=== PATIENT | female | born 1985 | race Hispanic/Latino ===

== ENCOUNTER 2019-02-01 17:27 | Inpatient (IN) | payer OTHER ==
[2019-02-01] MEDS ORDERED: Sodium Chloride 0.9% 1,000 ML IV STA ×2 (18:07→22:48)
[2019-02-01 18:38] LABS: BASO # 0.03 K/mm3 (0.0-2.0); BASO % 0.2 % (0.0-3.0); EOS # 0.2 (0.0-0.7); EOS % 1.2 % (1.5-5.0); HEMOGLOBIN 13.2 g/dL (12.0-16.0); LYMPH # 2.4 (1.2-3.4); LYMPH % 19.1 % (22.0-35.0); MEAN CELL VOLUME 87.8 fl (80.0-105.0); MEAN CORPUSCULAR HEMOGLOBIN 30.3 pg (25.0-35.0); MEAN CORPUSCULAR HGB CONC 34.6 g/dl (31.0-37.0); MONO # 0.9 (0.1-0.6); MONO % 7.3 % (1.0-6.0); RBC 4.35 10^6/uL (3.5-6.1); RED CELL DISTRIBUTION WIDTH 13.6 % (11.5-14.5); WHITE BLOOD COUNT 12.4 10^3/uL (4.5-11.0)
[2019-02-01 18:45] LABS: ALB/GLOB RATIO 1.4 (1.1-1.8); ALBUMIN 5.2 g/dL (3.0-4.8); ALT/SGPT 149 U/L (7-56); AST/SGOT 243 U/L (14-36); BLOOD UREA NITROGEN 6 mg/dL (7-21); CALCIUM 9.8 mg/dL (8.4-10.5); GFR NON-AFRICAN AMERICAN > 60; LIPASE 30 U/L (23-300)
[2019-02-01 18:52] LABS: PH,URINE 6.5 (4.7-8.0); URINE BILIRUBIN SMALL (NEGATIVE); URINE BLOOD NEGATIVE (NEGATIVE); URINE GLUCOSE (UA) NEGATIVE (NEGATIVE); URINE LEUKOCYTE ESTERASE NEGATIVE Leu/uL (NEGATIVE); URINE PROTEIN 30 mg/dL (<30 mg/dL); URINE UROBILINOGEN 0.2 E.U./dL (<1 E.U./dL)
[2019-02-01 18:53] LABS: URINE APPEARANCE SLIGHT-CLOUDY (CLEAR)
[2019-02-01 19:04] LABS: URINE BACTERIA FEW /hpf; URINE EPITHELIAL CELLS 0 - 2 /hpf (0-5)
[2019-02-01 19:05] LABS: URINE COLOR DARK YELLOW (YELLOW)
--- NOTE | 2019-02-01 19:11 | ED PDOC ---
Arrival/HPI - General Historian: Patient - History of Present Illness Narrative History of Present Illness (Text): 02/01/19 19:01 33 year old female with a PMH of ulcerative colitis (remission since teenager) presents to the emergency department complaining of cramping abdominal pain with episodes of Nausea, Vomiting, and diarrhea x6days. Patient reports that she have had epigastric heartburn and difficulty eating or drinking due to constant vomiting. Patient denies any fevers, chills, headache, dizziness, chest pain, shortness of breath, dyspnea on exertion, cough, back pain, neck pain, or any other complaint. Time/Duration: < week Symptom Onset: Gradual Symptom Course: Unchanged Activities at Onset: Light Context: Home <Karla Pollock - Last Filed: 02/01/19 22:59> <Santos Marsh - Last Filed: 02/01/19 23:29> - General Chief Complaint: Abdominal Pain Time Seen by Provider: 02/01/19 17:59 Past Medical History - Provider Review Nursing Documentation Reviewed: Yes - Endocrine/Metabolic Hx Hypothyroidism: Yes - Hematological/Oncological Hx Anemia: Yes - Gastrointestinal Other/Comment: Liver problem due to previous alcohol use. Gall stone - Psychiatric Hx Substance Use: No <Karla Pollock - Last Filed: 02/01/19 22:59> Family/Social History - Physician Review Nursing Documentation Reviewed: Yes Family/Social History: No Known Family HX Smoking Status: Former Smoker Hx Alcohol Use: No (Quit 1 year ago) Hx Substance Use: No <Karla Pollock - Last Filed: 02/01/19 22:59> Allergies/Home Meds <Karla Pollock - Last Filed: 02/01/19 22:59> <Santos Marsh - Last Filed: 02/01/19 23:29> Allergies/Adverse Reactions: Allergies No Known Allergies Allergy (Verified 02/01/19 17:49) Home Medications: Home Meds Medication Instructions Recorded Confirmed Ferrous Sulfate [Ferosul] 325 mg PO QID 02/01/19 02/01/19 LORazepam [Ativan] 0.5 mg PO DAILY PRN 02/01/19 02/01/19 Levothyroxine [Synthroid] 100 mcg PO DAILY 02/01/19 02/01/19 Review of Systems - Physician Review All systems were reviewed & negative as marked: Yes - Review of Systems Constitutional: Fatigue. absent: Fevers Respiratory: absent: SOB, Cough Cardiovascular: absent: Chest Pain Gastrointestinal: Abdominal Pain (Epigastric, cramping), Diarrhea, Nausea, Vomiting. absent: Constipation, Hematochezia, Hematemesis Genitourinary Female: absent: Dysuria, Frequency, Hematuria Musculoskeletal: absent: Arthralgias, Back Pain, Neck Pain Skin: absent: Rash, Pruritis Neurological: absent: Headache, Dizziness Psychiatric: absent: Anxiety, Depression <Karla Pollock - Last Filed: 02/01/19 22:59> Physical Exam Vital Signs Reviewed: Yes Vital Signs Temp Pulse Resp BP Pulse Ox 02/01/19 17:44 97.5 F L 89 18 126/87 98 Temperature: Afebrile Blood Pressure: Normal Pulse: Regular Respiratory Rate: Normal Appearance: Positive for: Well-Appearing, Non-Toxic, Comfortable Pain Distress: None Mental Status: Positive for: Alert and Oriented X 3 - Systems Exam Head: Present: Atraumatic Mouth: Present: Moist Mucous Membranes Neck: Present: Normal Range of Motion Respiratory/Chest: Present: Clear to Auscultation, Good Air Exchange. No: Respiratory Distress, Accessory Muscle Use Cardiovascular: Present: Regular Rate and Rhythm, Normal S1, S2. No: Murmurs Abdomen: Present: Tenderness (minimal lower abdominal tenderness), Normal Bowel Sounds. No: Distention, Peritoneal Signs, Rebound, Guarding Back: Present: Normal Inspection. No: CVA Tenderness Upper Extremity: Present: Normal Inspection, Normal ROM Lower Extremity: Present: Normal Inspection, Normal ROM Neurological: Present: GCS=15, Speech Normal Skin: Present: Warm, Dry, Normal Color. No: Rashes Psychiatric: Present: Alert, Oriented x 3 <Karla Pollock - Last Filed: 02/01/19 22:59> Vital Signs Temp Pulse Resp BP Pulse Ox 02/01/19 17:44 97.5 F L 89 18 126/87 98 <Santos Marsh - Last Filed: 02/01/19 23:29> Medical Decision Making ED Course and Treatment: 02/01/19 19:16 Impression: 33 year old female presents to the emergency department complaining of cramping abdominal pain with episodes of Nausea, Vomiting, and diarrhea x6days. Plan: --CT Abd/Pelvis --Zofran Injection --Pepcid --Saline IV --UA --Labs -- Reassess and disposition Prior Visits: Notes and results from previous visits were reviewed. Progress Notes: Patient is nontoxic well appearing with stable vital signs presenting with [severe] abdominal pain CBC wbc: 12.3 CMP: elevated lfts Lipase wnl Urinalysis no leukocytes CAT scan: FINDINGS: LUNG BASES: The lung bases appear clear. No pleural effusions are seen. LIVER: Unremarkable. GALLBLADDER AND BILE DUCTS: There are two large calcified gallstones noted measuring up to 2 cm. No biliary ductal dilatation is evident. PANCREAS: Unremarkable. SPLEEN: Unremarkable. ADRENAL GLANDS: Unremarkable. KIDNEYS, URETERS, AND BLADDER: The kidneys appear within normal limits. There is no hydronephrosis or hydroureter. No urinary calculi are seen. STOMACH AND BOWEL: Thick walled fluid filled duodenum and loops of jejunum as well as ileum compatible with enteritis. Thick walled fluid filled colon is noted with involvement of all segments compatible with diffuse pancolitis. Infectious and inflammatory etiologies are considered. APPENDIX: No evidence of acute appendicitis on CT examination. PERITONEUM: No free fluid. No free air. LYMPH NODES: No lymphadenopathy is evident. REPRODUCTIVE: Simple 2.5 cm left ovarian cyst is seen. The uterus and ovaries are otherwise unremarkable. VASCULATURE: No evidence of abdominal aortic aneurysm. BONES: No aggressive appearing osseous lesion. No acute osseous pathology evident. IMPRESSION: 1. There are two large calcified gallstones noted measuring up to 2 cm. Consider follow-up with right upper quadrant ultrasound. 2. Enterocolitis. Infectious and inflammatory etiologies are considered. Consider consultation with GI service. 3. Simple 2.5 cm left ovarian cyst is seen. The uterus and ovaries are otherwise unremarkable. Electronically signed on Feb 01, 2019 9:36:25 PM EST by: Terrell Baker M.D., JEWELL Certified By [facility] Fellowship Trained MRI and CT Specialist Patient reassessment: pt states symptoms improved and then returned. blood cultures pending pt started on rocephin and flagyl . 2nd dose of zofran given. Discussed all results with patient in depth case discussed with dr. rose; accepts admission. Impression: pancolitis, gallstones, elevated lfts, abdominal pain admit - Lab Interpretations Lab Results: Total Bilirubin 3.7 mg/dL (0.2-1.3) H 02/01/19 18:14 AST 243 U/L (14-36) H 02/01/19 18:14 ALT 149 U/L (7-56) H 02/01/19 18:14 Alkaline Phosphatase 235 U/L (38-126) H 02/01/19 18:14 Total Protein 8.9 g/dL (5.8-8.3) H 02/01/19 18:14 Albumin 5.2 g/dL (3.0-4.8) H 02/01/19 18:14 Globulin 3.7 gm/dL 02/01/19 18:14 Albumin/Globulin Ratio 1.4 (1.1-1.8) 02/01/19 18:14 Lipase 30 U/L (23-300) 02/01/19 18:14 Urine Color Dk (YELLOW) 02/01/19 18:14 Urine Appearance Slight-cloudy (CLEAR) 02/01/19 18:14 Urine pH 6.5 (4.7-8.0) 02/01/19 18:14 Ur Specific [place] 1.025 (1.005-1.035) 02/01/19 18:14 Urine Protein 30 mg/dL (<30 mg/dL) H 02/01/19 18:14 Urine Glucose (UA) Negative mg/dL (NEGATIVE) 02/01/19 18:14 Urine Ketones Negative mg/dL (NEGATIVE) 02/01/19 18:14 Urine Blood Negative (NEGATIVE) 02/01/19 18:14 Urine Nitrate Positive (NEGATIVE) H 02/01/19 18:14 Urine Bilirubin Small (NEGATIVE) H 02/01/19 18:14 Urine Urobilinogen 0.2 E.U./dL (<1 E.U./dL) 02/01/19 18:14 Ur Leukocyte Esterase Negative Hussein/uL (NEGATIVE) 02/01/19 18:14 - Medication Orders Current Medication Orders: Sodium Chloride (Sodium Chloride 0.9%) 1,000 mls @ 999 mls/hr IV .Q1H1M STA Stop: 02/01/19 19:07 Last Admin: 02/01/19 18:13 Dose: 999 mls/hr eMAR Start Stop Document 02/01/19 18:13 BB (Rec: 02/01/19 18:13 BB [id number]) Intravenous Solution Start Date 02/01/19 Start Time 18:13 <Karla Pollock T - Last Filed: 02/01/19 22:59> - Lab Interpretations Lab Results: Total Bilirubin 3.7 mg/dL (0.2-1.3) H 02/01/19 18:14 AST 243 U/L (14-36) H 02/01/19 18:14 ALT 149 U/L (7-56) H 02/01/19 18:14 Alkaline Phosphatase 235 U/L (38-126) H 02/01/19 18:14 Total Protein 8.9 g/dL (5.8-8.3) H 02/01/19 18:14 Albumin 5.2 g/dL (3.0-4.8) H 02/01/19 18:14 Globulin 3.7 gm/dL 02/01/19 18:14 Albumin/Globulin Ratio 1.4 (1.1-1.8) 02/01/19 18:14 Lipase 30 U/L (23-300) 02/01/19 18:14 Urine Color Dark yellow (YELLOW) 02/01/19 18:14 Urine Appearance Slight-cloudy (CLEAR) 02/01/19 18:14 Urine pH 6.5 (4.7-8.0) 02/01/19 18:14 Ur Specific [place] 1.025 (1.005-1.035) 02/01/19 18:14 Urine Protein 30 mg/dL (<30 mg/dL) H 02/01/19 18:14 Urine Glucose (UA) Negative mg/dL (NEGATIVE) 02/01/19 18:14 Urine Ketones Negative mg/dL (NEGATIVE) 02/01/19 18:14 Urine Blood Negative (NEGATIVE) 02/01/19 18:14 Urine Nitrate Positive (NEGATIVE) H 02/01/19 18:14 Urine Bilirubin Small (NEGATIVE) H 02/01/19 18:14 Urine Urobilinogen 0.2 E.U./dL (<1 E.U./dL) 02/01/19 18:14 Ur Leukocyte Esterase Negative Hussein/uL (NEGATIVE) 02/01/19 18:14 Urine RBC None /hpf (0-2) 02/01/19 18:14 Urine WBC None /hpf (0-6) 02/01/19 18:14 Ur Epithelial Cells 0 - 2 /hpf (0-5) 02/01/19 18:14 Urine Bacteria Few /hpf (NONE) 02/01/19 18:14 - RAD Interpretation Radiology Orders: 02/01/19 19:06 ABD & PELVIS IV CONTRAST ONLY [CT] Stat - Medication Orders Current Medication Orders: Discontinued Medications Famotidine (Pepcid) 20 mg IVP STAT STA Stop: 02/01/19 19:07 Last Admin: 02/01/19 19:21 Dose: 20 mg IVP Administration Document 02/01/19 19:21 IT (Rec: 02/01/19 19:21 IT [id number]) Charges for Administration # of IVP Administrations 1 Sodium Chloride (Sodium Chloride 0.9%) 1,000 mls @ 999 mls/hr IV .Q1H1M STA Stop: 02/01/19 19:07 Last Admin: 02/01/19 18:13 Dose: 999 mls/hr eMAR Start Stop Document 02/01/19 18:13 BB (Rec: 02/01/19 18:13 BB [id number]) Intravenous Solution Start Date 02/01/19 Start Time 18:13 Ondansetron HCl (Zofran Inj) 4 mg IVP STAT STA Stop: 02/01/19 19:07 Last Admin: 02/01/19 19:21 Dose: 4 mg IVP Administration Document 02/01/19 19:21 IT (Rec: 02/01/19 19:21 IT [id number]) Charges for Administration # of IVP Administrations 1 <Santos Marsh - Last Filed: 02/01/19 23:29> - PA / SENIOR CONSUMER INSIGHTS CONSULTANT / Resident Statement MD/ has reviewed & agrees with the documentation as recorded. - Scribe Statement The provider has reviewed the documentation as recorded by the Vin brar with Citl[place] All medical record entries made by the Lisaibkatie were at my direction and personally dictated by me. I have reviewed the chart and agree that the record accurately reflects my personal performance of the history, physical exam, medical decision making, and the department course for this patient. I have also personally directed, reviewed, and agree with the discharge instructions and disposition. <Karla Pollock - Last Filed: 02/01/19 22:59> - PA / SENIOR CONSUMER INSIGHTS CONSULTANT / Resident Statement / has reviewed & agrees with the documentation as recorded. / has examined the patient and agrees with the treatment plan. <Santos Marsh - Last Filed: 02/01/19 23:29> Disposition/Present on Arrival - Present on Arrival Any Indicators Present on Arrival: No History of DVT/PE: No History of Uncontrolled Diabetes: No Urinary Catheter: No History of Decub. Ulcer: No History Surgical Site Infection Following: None - Disposition Have Diagnosis and Disposition been Completed?: Yes Disposition Time: 22:51 Patient Plan: Admission <Karla Pollock - Last Filed: 02/01/19 22:59> <Santos Marsh - Last Filed: 02/01/19 23:29> - Disposition Diagnosis: Pancolitis, Elevated LFTs, Gallstones Disposition: HOSPITALIZED Patient Problems: Current Active Problems Problem Status Onset Elevated LFTs Acute Gallstones Acute Pancolitis Acute Condition: FAIR Discharge Instructions (ExitCare): Ulcerative Colitis (ED) Referrals: Diony Horan MD [Primary Care Provider] - Follow up with primary Forms: [facility] ([place])
[2019-02-01] MEDS ORDERED: Iohexol 350 MG/100 ML VIAL ONE (20:20)
[2019-02-01] MEDS ORDERED: cefTRIAXone 1 gm 1 GM/100 ML BAG IVPB STA (22:48)
[2019-02-01] MEDS ORDERED: metroNIDAZOLE IV 500 mg/100 ml 500 MG/100 ML BAG IVPB STA (22:48)
--- NOTE | 2019-02-01 23:38 | CP.PCM.HP ---
<Jonny Francisco - Last Filed: 02/02/19 01:57> History of Present Illness - History of Present Illness History of Present Illness: Jonny Francisco, PGY1 Medicine H&P for Dr. Kelly cc: "cramping lower abdominal pain with nausea, vomiting, diarrhea x1 week duration" Patient is a 33 year old female with a PMHx of ulcerative colitis (remission since teenager), Gallstones, Hypothyroidism, Anxiety, Iron Deficiency Anemia who presents to the emergency department complaining of cramping lower abdominal pain with episodes of nausea, vomiting, and diarrhea x1 week in duration. She also has associated difficulty with eating and drinking in the past few days because of her nausea and vomiting. Medical team evaluated patient in the ED. She said her vomiting is non-bloody and non-bilious. Diarrhea has been worsening in the last week. She claims that yesterday she was having diarrhea almost every 15 minutes. She was recently given xifaxan. She says she had UC diagnosed at age 6 and that was the last time she had a colonoscopy. She used to take prednisone for her UC however she has been in remission since a teenager. She is also aware that she has gallstones but says she was told that surgery was not necessary. Patient follows up with her GI physician for her UC, last appointment was in August 2018. She has never had an upper endoscopy done before. Since arrival to the ED, her pain has improved a little and she has less nausea and vomiting since arrival. Denies cough, headache, fever, chills, cp, sob, lightheadedness, dizziness, weight loss, night sweats, urinary frequency/urgency/dysuria. She has not tried any unusual foods recently, no sick contacts, no recent travel. A full 12 point ROS was conducted and unremarkable except as stated above. PMD: Dr. 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 Lives in [place]. Former smoker (1 PPD x 20 years), quit 1 year ago. Denies EtOH use (last drink 1 year ago). Denies illicit drug use. FamHx: father has DM and brother has DM. Present on Admission - Present on Admission Any Indicators Present on Admission: No Review of Systems - Review of Systems All systems: reviewed and no additional remarkable complaints except (as per HPI.) Past Patient History - Past Social History Smoking Status: Former Smoker - ENDOCRINE/METABOLIC Hx Hypothyroidism: Yes - HEMATOLOGICAL/ONCOLOGICAL Hx Anemia: Yes - GASTROINTESTINAL Other/Comment: Liver problem due to previous alcohol use. Gall stone - PSYCHIATRIC Hx Substance Use: No - SURGICAL HISTORY Hx Surgeries: No Meds Allergies/Adverse Reactions: Allergies Allergy/AdvReac Type Severity Reaction Status Date / Time No Known Allergies Allergy Verified 02/01/19 17:49 Physical Exam - Constitutional Appears: No Acute Distress - Head Exam Head Exam: ATRAUMATIC, NORMAL INSPECTION, NORMOCEPHALIC - Eye Exam Eye Exam: EOMI, Normal appearance Pupil Exam: NORMAL ACCOMODATION, PERRL - ENT Exam ENT Exam: Mucous Membranes Moist - Respiratory Exam Respiratory Exam: Clear to Auscultation Bilateral, NORMAL BREATHING PATTERN. absent: Accessory Muscle Use, Chest Wall Tenderness, Prolonged Expiratory Phase, Rales, Rhonchi, Wheezes - Cardiovascular Exam Cardiovascular Exam: RRR, +S1, +S2 - GI/Abdominal Exam GI & Abdominal Exam: Normal Bowel Sounds, Soft, Tenderness (Lower abdominal tenderness to deep palpation. ). absent: Firm, Guarding, Hernia, Organomegaly, Pulsatile Mass, Rebound Additional comments: No suprapubic tenderness. - Extremities Exam Extremities exam: Positive for: full ROM, normal inspection, pedal pulses present. Negative for: calf tenderness - Back Exam Back exam: NORMAL INSPECTION. absent: CVA tenderness (L), CVA tenderness (R) - Neurological Exam Neurological exam: Alert, CN II-XII Intact, Oriented x3 - Psychiatric Exam Psychiatric exam: Normal Affect, Normal Mood - Skin Skin Exam: Dry, Intact, Normal Color, Warm Results - Vital Signs Recent Vital Signs: Last Vital Signs Temp 97.5 F L 02/01/19 17:44 Pulse 89 02/01/19 17:44 Resp 18 02/01/19 17:44 BP 126/87 02/01/19 17:44 Pulse Ox 98 02/01/19 17:44 - Labs Result Diagrams: 02/01/19 18:14 02/01/19 18:14 Labs: Laboratory Results - last 24 hr 02/01/19 02/01/19 02/01/19 18:14 18:14 18:14 WBC 12.4 H RBC 4.35 Hgb 13.2 Hct 38.2 MCV 87.8 MCH 30.3 MCHC 34.6 RDW 13.6 Plt Count 240 MPV 12.0 H Neut % (Auto) 72.2 H Lymph % (Auto) 19.1 L [place] % (Auto) 7.3 H Eos % (Auto) 1.2 L Baso % (Auto) 0.2 Lymph # (Auto) 2.4 [place] # (Auto) 0.9 H Eos # (Auto) 0.2 Baso # (Auto) 0.03 Absolute Neuts (auto) 8.95 H Sodium 140 Potassium 4.0 Chloride 102 Carbon Dioxide 24 Anion Gap 17 BUN 6 L Creatinine 0.6 L Est GFR ( Amer) > 60 Est GFR (Non-Af Amer) > 60 Random Glucose 110 Calcium 9.8 Total Bilirubin 3.7 H AST 243 H ALT 149 H Alkaline Phosphatase 235 H Total Protein 8.9 H Albumin 5.2 H Globulin 3.7 Albumin/Globulin Ratio 1.4 Lipase 30 Urine Color Dark yellow Urine Appearance Slight-cloudy Urine pH 6.5 Ur Specific [place] 1.025 Urine Protein 30 H Urine Glucose (UA) Negative Urine Ketones Negative Urine Blood Negative Urine Nitrate Positive H Urine Bilirubin Small H Urine Urobilinogen 0.2 Ur Leukocyte Esterase Negative Urine RBC None Urine WBC None Ur Epithelial Cells 0 - 2 Urine Bacteria Few Assessment & Plan - Assessment and Plan (Free Text) Assessment: Patient is a 33 year old female with a PMHx of ulcerative colitis (remission since teenager), Gallstones, Hypothyroidism, Anxiety, Iron Deficiency Anemia who presents to the emergency department complaining of cramping lower abdominal pain with episodes of nausea, vomiting, and diarrhea x1 week in duration. Patient will be admitted for Lower Abdominal Pain with Vomiting and Diarrhea 2/2 Enterocolitis vs Gasteroenteritis vs C. Diff. Plan: Lower Abdominal Pain with Vomiting and Diarrhea 2/2 Enterocolitis vs Neyda eroenteritis vs C. Diff. - fecal leukocytes - stool ova and parasites - C. Diff toxin - c/w Flagyl and Ceftriaxone - motrin prn for pain control - zofran prn for nausea and vomiting - NPO - NS @ 100 cc/hr - GI consulted (Dr. Hardy) - mild leukocytosis but afebrile; f/u repeat labs - f/u blood cx and urine cx - CT A/P: two large calcified gallstones 2cm and enterocolitis. - UA +nitrates, small bili, +protein; patient asymptomatic for UTI - Hx Ulcerative Colitis (remission since teenager) Asymptomatic Cholelithiasis - RUQ ultrasound - Transaminitis with AST/ALT/ALP 243/149/235; f/u repeat labs - acute hepatitis panel ordered - GI is following - CT A/P shows evidence of gallstones Hypothyroidism - resume home med synthroid 100 mcg PO daily Anxiety - resume home med ativan 0.5mg PO prn Iron Deficiency Anemia - resume home med feosol 324mg PO QID GI ppx: ptx DVT ppx: scd Diet: NPO Dispo: Monitor patient on med/surg. Follow up recs from GI. Case was discussed and reviewed with Attending Physician, Dr. Kelly <Varun Kelly - Last Filed: 02/02/19 21:32> Results - Vital Signs Recent Vital Signs: Last Vital Signs Temp 99.2 F 02/02/19 13:53 Pulse 61 02/02/19 13:53 Resp 18 02/02/19 13:53 BP 100/71 02/02/19 13:53 Pulse Ox 97 02/02/19 13:53 - Labs Result Diagrams: 02/02/19 06:50 02/02/19 06:50 Labs: Laboratory Results - last 24 hr 02/02/19 02/02/19 02/02/19 06:50 06:50 06:50 WBC 12.2 H RBC 3.95 Hgb 11.8 L Hct 35.3 L MCV 89.4 MCH 29.9 MCHC 33.4 RDW 13.7 Plt Count 201 MPV 12.3 H Sodium 139 Potassium 3.5 L Chloride 106 Carbon Dioxide 24 Anion Gap 13 BUN 7 Creatinine 0.7 Est GFR ( Amer) > 60 Est GFR (Non-Af Amer) > 60 Random Glucose 91 Calcium 9.1 Total Bilirubin 4.9 H AST 135 H D ALT 97 H Alkaline Phosphatase 165 H D Total Protein 7.5 Albumin 4.3 Globulin 3.3 Albumin/Globulin Ratio 1.3 Stool Leukocytes, Qual Hepatitis A IgM Ab Negative Hep Bs Antigen Negative Hep B Core IgM Ab Negative Hepatitis C Antibody Negative 02/02/19 11:00 WBC RBC Hgb Hct MCV MCH MCHC RDW Plt Count MPV Sodium Potassium Chloride Carbon Dioxide Anion Gap BUN Creatinine Est GFR ( Amer) Est GFR (Non-Af Amer) Random Glucose Calcium Total Bilirubin AST ALT Alkaline Phosphatase Total Protein Albumin Globulin Albumin/Globulin Ratio Stool Leukocytes, Qual Negative Hepatitis A IgM Ab Hep Bs Antigen Hep B Core IgM Ab Hepatitis C Antibody Attending/Attestation - Attestation I have personally seen and examined this patient.: Yes I have fully participated in the care of the patient.: Yes I have reviewed all pertinent clinical information: Yes Notes (Text): 02/02/19 21:32 seen and examined. discussed with resident. A & P as above.
[2019-02-02] MEDS ORDERED: Sodium Chloride 0.9% 1,000 ML IV SCH (01:00)
[2019-02-02 03:34] VITALS: RESP 18
[2019-02-02] MEDS: Pantoprazole 40 mg EC Tab PO SCH (05:45)
[2019-02-02] MEDS: Levothyroxine 100 MCG TAB PO SCH (05:45)
[2019-02-02] MEDS: metroNIDAZOLE IV 500 mg/100 ml 500 MG/100 ML BAG IVPB SCH ×2 (05:46→15:00)
[2019-02-02 07:22] LABS: HEMOGLOBIN 11.8 g/dL (12.0-16.0); MEAN CELL VOLUME 89.4 fl (80.0-105.0); MEAN CORPUSCULAR HEMOGLOBIN 29.9 pg (25.0-35.0); MEAN CORPUSCULAR HGB CONC 33.4 g/dl (31.0-37.0); MEAN PLATELET VOLUME 12.3 fl (7.0-11.0); RBC 3.95 10^6/uL (3.5-6.1); RED CELL DISTRIBUTION WIDTH 13.7 % (11.5-14.5); WHITE BLOOD COUNT 12.2 10^3/uL (4.5-11.0)
[2019-02-02 07:39] LABS: ALB/GLOB RATIO 1.3 (1.1-1.8); ALBUMIN 4.3 g/dL (3.0-4.8); ALT/SGPT 97 U/L (7-56); AST/SGOT 135 U/L (14-36); BLOOD UREA NITROGEN 7 mg/dL (7-21); CALCIUM 9.1 mg/dL (8.4-10.5); GFR NON-AFRICAN AMERICAN > 60
--- NOTE | 2019-02-02 09:23 | CT ---
Date of service: 02/01/2019 PROCEDURE: CT Abdomen and Pelvis with contrast HISTORY: abd pain COMPARISON: None. TECHNIQUE: Contrast dose: 98 cc of Omnipaque 350 Radiation dose: Total exam DLP = 905.99 mGy-cm. This CT exam was performed using one or more of the following dose reduction techniques: Automated exposure control, adjustment of the mA and/or kV according to patient size, and/or use of iterative reconstruction technique. FINDINGS: LOWER THORAX: Unremarkable. LIVER: Unremarkable. No gross lesion or ductal dilatation. GALLBLADDER AND BILE DUCTS: There are 2 large calcified gallstones measuring up to 2 cm in diameter. There is no evidence of cholecystitis. PANCREAS: Unremarkable. No gross lesion or ductal dilatation. SPLEEN: Unremarkable. ADRENALS: Unremarkable. No mass. KIDNEYS AND URETERS: Unremarkable. No hydronephrosis. No solid mass. VASCULATURE: Unremarkable. No aortic aneurysm. No aortic atherosclerotic calcification or mural plaque present. BOWEL: There is fatty infiltration of the wall of the colon especially in the ascending colon. This is consistent with chronic inflammatory bowel disease. There is no evidence of acute colitis APPENDIX: Normal appendix. PERITONEUM: Unremarkable. No free fluid. No free air. LYMPH NODES: Unremarkable. No enlarged lymph nodes. BLADDER: Unremarkable. REPRODUCTIVE: 2.5 cm left ovarian cyst BONES: No acute fracture. OTHER FINDINGS: None. IMPRESSION: There is fatty infiltration of the wall of the colon especially in the ascending colon. This is consistent with chronic inflammatory bowel disease. There is no evidence of acute colitis There are 2 large calcified gallstones measuring up to 2 cm in diameter. There is no evidence of cholecystitis.
--- NOTE | 2019-02-02 10:52 | US ---
Date of service: 02/02/2019 HISTORY: cholelithiasis seen on CT A/P COMPARISON: CT 02/01/2019 TECHNIQUE: Sonographic evaluation of the right upper quadrant of the abdomen. FINDINGS: LIVER: Measures 19.4 cm in length. Increased echogenicity of the liver parenchyma. No mass. No intrahepatic bile duct dilatation. GALLBLADDER: As seen on CT there are 2 large gallstones in the neck of the gallbladder. There is no mural thickening or pericholecystic fluid. COMMON BILE DUCT: Measures 3.7 mm. No stones. No dilatation. PANCREAS: Unremarkable as visualized. No mass. No ductal dilatation. RIGHT KIDNEY: Measures 11.7 x 4.6 x 6.5 cm in length. Normal echogenicity. No calculus, mass, or hydronephrosis. AORTA: Not visualized IVC: Unremarkable. OTHER FINDINGS: None . IMPRESSION: As seen on CT there are 2 large gallstones in the neck of the gallbladder. There is no mural thickening or pericholecystic fluid.
[2019-02-02] MEDS: cefTRIAXone 1 gm 1 GM/100 ML BAG IVPB SCH (11:02)
[2019-02-02] MEDS: Sodium Chloride 0.9% 1,000 ML IV SCH ×2 (12:35→17:29)
[2019-02-02 13:07] LABS: HEPATITIS B SURFACE AG Negative (NEGATIVE)
[2019-02-02 13:13] LABS: HEPATITIS A IGM NEGATIVE (NEGATIVE); HEPATITIS B CORE AB NEGATIVE (NEGATIVE)
[2019-02-02 13:24] LABS: HEPATITIS C ANTIBODY NEGATIVE (NEGATIVE)
[2019-02-02 22:02] VITALS: O2SAT 98
[2019-02-03] MEDS: metroNIDAZOLE IV 500 mg/100 ml 500 MG/100 ML BAG IVPB SCH ×3 (00:17→14:36)
--- NOTE | 2019-02-03 02:52 | CON ---
DATE: 02/02/2019 REASON FOR CONSULTATION: History of abdominal pain and history of ulcerative colitis. HISTORY OF PRESENT ILLNESS: This 33-year-old patient admitted to the hospital with complaints of diarrhea, abdominal pain, and vomiting. She states this problem started about a week ago, progressively got worse. She is noted to have history of ulcerative colitis at the age of 6 diagnosed and she was initially on steroid. She was on treatment. The patient has a diagnosis of ulcerative colitis at the age of 6. She is not on any regular treatment for long time. The patient seen by code enforcement supervisor in 2018. She had an ultrasound and CAT scan done and she is due to have followup to have endoscopic evaluation, which was not done. The patient states her bowel has been generally constipating until this recent episode. She was on steroid about a year ago for alcoholic hepatitis. Since then, she stopped drinking alcohol. No history of any bleeding per rectum. No fever. PAST MEDICAL HISTORY: Other past medical history is significant for ulcerative colitis, gallstones, hypothyroidism, anxiety, and anemia. PAST SURGICAL HISTORY: Denies. ALLERGIES: NO KNOWN DRUG ALLERGIES. REVIEW OF SYSTEMS: Positive as above. Other systems reviewed negative. PHYSICAL EXAMINATION: GENERAL: The patient is lying on the bed, not in acute distress. VITAL SIGNS: Temperature is 98.6, pulse 59, blood pressure 100/69, respirations 18, and O2 saturation 98%. HEENT: Atraumatic and anicteric. NECK: Supple. HEART: S1 and S2 heard. LUNGS: Bilateral air entry present. ABDOMEN: Soft. There was mild tenderness present in the epigastric and also right lower quadrant area. There is no rebound or guarding. EXTREMITIES: No edema. No cyanosis. NEUROLOGICAL: Alert and oriented. Moves all the extremities. LABORATORY DATA: Hemoglobin 11.8, hematocrit 35.3, WBC is 12.2, and platelets 201. Chemistry showed total bilirubin elevated to 4.9, AST 135, ALT is 97, and alkaline phosphatase is 165. The patient has an ultrasound scan of the abdomen done and there were two large stones in the neck of the gallbladder noted. There is no mural thickening or pericholecystic fluid. Common bile duct appears normal measuring about 3.7 mm. The patient had CT scan of the abdomen and pelvis done with only IV contrast that showed fatty infiltration at the wall of the colon especially in the ascending colon. There is a colonic inflammatory bowel disease noted. There were two large gallstones noted. IMPRESSION: This 33-year-old patient admitted with history of ulcerative colitis, admitted with an abdominal pain and diarrhea, found to have an elevated liver function tests and also has some inflammatory changes in the right side of the colon. The ultrasound scan showed normal common bile duct of the gallstones. PROBLEMS: Include: 1. Abnormal LFTs. The differential diagnosis, which include; a. Cholelithiasis. b. Chronic hepatitis. c. Sclerosing cholangitis included in the differential diagnosis. 2. Episode of diarrhea, abdominal pain and differential diagnosis include infectious colitis versus inflammatory bowel disease. 3. Gallstones. RECOMMENDATIONS: 1. Follow up with the stool studies. 2. Continue the antibiotics. 3. Clear liquid diet. 4. MRI of the abdomen with MRCP to further evaluate the liver and also bile duct. To rule out clinical cholangitis, rule out CBD stone. We will continue to closely followup with her care. Thank you very much for allowing us to participate in the care of the patient. Zulay Hardy MD
[2019-02-03] MEDS: Levothyroxine 100 MCG TAB PO SCH (06:44)
[2019-02-03] MEDS: Pantoprazole 40 mg EC Tab PO SCH (06:44)
--- NOTE | 2019-02-03 07:08 | CP.PCM.PN ---
Subjective - Date & Time of Evaluation Date of Evaluation: 02/03/19 Time of Evaluation: 07:08 Objective - Vital Signs/Intake and Output Vital Signs (last 24 hours): Temp Pulse Resp BP Pulse Ox 98.6 F 59 L 18 100/69 98 02/02/19 22:02 02/02/19 22:02 02/02/19 22:02 02/02/19 22:02 02/02/19 22:02 Intake and Output: 02/03/19 02/03/19 06:59 18:59 Intake Total 1160 Balance 1160 - Medications Medications: Current Medications Ferrous Sulfate (Feosol) 324 mg PO QID [facility] Last Admin: 02/03/19 00:16 Dose: 324 mg Metronidazole (Flagyl) 500 mg in 100 mls @ 100 mls/hr IVPB Q8 [facility]; Protocol Last Admin: 02/03/19 06:45 Dose: 100 mls/hr Ceftriaxone Sodium (Rocephin 1 Gram Ivpb) 1 gm in 100 mls @ 100 mls/hr IVPB DAILY [facility]; Protocol Last Admin: 02/02/19 11:02 Dose: 100 mls/hr Sodium Chloride (Sodium Chloride 0.9%) 1,000 mls @ 125 mls/hr IV .Q8H [facility] Last Admin: 02/02/19 17:29 Dose: 125 mls/hr Ibuprofen (Motrin Tab) 400 mg PO Q6H PRN PRN Reason: Pain, moderate (4-7) Levothyroxine Sodium (Synthroid) 100 mcg PO 0600 [facility] Last Admin: 02/03/19 06:44 Dose: 100 mcg Lorazepam (Ativan) 0.5 mg PO DAILY PRN; Protocol PRN Reason: Anxiety Last Admin: 02/02/19 11:21 Dose: 0.5 mg Nicotine (Nicoderm Cq) 1 patch TD DAILY [facility] Last Admin: 02/02/19 11:01 Dose: 1 patch Ondansetron HCl (Zofran Inj) 4 mg IVP Q4H PRN PRN Reason: Nausea/Vomiting Last Admin: 02/02/19 04:25 Dose: 4 mg Pantoprazole Sodium (Protonix Ec Tab) 40 mg PO 0600 [facility] Last Admin: 02/03/19 06:44 Dose: 40 mg - Labs Labs: 02/02/19 06:50 02/02/19 06:50
[2019-02-03 07:34] LABS: HEMOGLOBIN 11.4 g/dL (12.0-16.0); MEAN CELL VOLUME 89.4 fl (80.0-105.0); MEAN CORPUSCULAR HEMOGLOBIN 30.1 pg (25.0-35.0); MEAN CORPUSCULAR HGB CONC 33.6 g/dl (31.0-37.0); MEAN PLATELET VOLUME 11.7 fl (7.0-11.0); RBC 3.79 10^6/uL (3.5-6.1); RED CELL DISTRIBUTION WIDTH 13.7 % (11.5-14.5); WHITE BLOOD COUNT 9.5 10^3/uL (4.5-11.0)
[2019-02-03 07:58] LABS: ALB/GLOB RATIO 1.3 (1.1-1.8); ALT/SGPT 90 U/L (7-56); AST/SGOT 122 U/L (14-36); BLOOD UREA NITROGEN 5 mg/dL (7-21); CALCIUM 9.4 mg/dL (8.4-10.5); GFR NON-AFRICAN AMERICAN > 60
[2019-02-03 08:28] VITALS: BP 111/69; PULSE 58; TEMP 98.5
[2019-02-03] MEDS: cefTRIAXone 1 gm 1 GM/100 ML BAG IVPB SCH (10:36)
[2019-02-03] MEDS ORDERED: Gadodiamide 287 MG/ML VIAL (20ML) IV ONE (13:48)
--- NOTE | 2019-02-03 14:56 | MRI ---
Date of service: 02/03/2019 PROCEDURE: Magnetic Resonance Cholangiopancreatography and MRI of the abdomen with and without contrast HISTORY: Rule out common duct stones COMPARISON: None available. TECHNIQUE: Multiplanar, multisequence MR images of the abdomen were obtained, including heavily T2 weighted MRCP images of the biliary system. Rotating maximum intensity projection images of the biliary system were generated. Postcontrast imaging was performed in multiple phases. 20 cc of Omniscan were injected FINDINGS: MRCP: The common bile duct is of a normal caliber. No evidence of choledocholithiasis. No intrahepatic biliary ductal dilatation. LIVER: Unremarkable. GALLBLADDER: There are 2 gallstones measuring 15 mm in length. There is mild mural thickening. SPLEEN: Unremarkable. PANCREAS: Unremarkable. ADRENALS: Unremarkable. KIDNEYS: Unremarkable. AORTA: No aneurysm. ASCITES: None. OTHER FINDINGS: None. IMPRESSION: Two large gallstones. No common duct stones. The common duct is normal in caliber
--- NOTE | 2019-02-03 15:56 | CP.PCM.CON ---
<Raghavendra Keenan - Last Filed: 02/03/19 16:25> History of Present Illness - History of Present Illness History of Present Illness: Raghavendra Keenan, PGY-[address] Fall CC: Diarrhea HPI: Ms. Soto is a 33 year old female with a PMHx of ulcerative colitis (remission since age 11), Gallstones, Hypothyroidism, Anxiety, Iron Deficiency Anemia who presented with episodes of nausea, vomiting, and diarrhea x1 week in duration. She also has associated difficulty with eating and drinking in the past few days because of her nausea and vomiting. Medical team evaluated patient in the ED. She reports vomiting is non-bloody and non-bilious. Diarrhea has been worsening in the last week and remains loose. Patient reports UC was diagnosed at age 6 and that was the last time she had a colonoscopy. She used to take prednisone for her UC but has been in remission since a teenager. She is also aware that she has gallstones but says she was told that surgery was not necessary. Patient follows up with her GI physician for her UC, last appointment was in August 2018. Patient has never undergone an upper endoscopy. Currently, patient denies chest pain, palpitations, shortness of breath, cough, headache, fever, chills, lightheadedness, dizziness, weight loss, night sweats, urinary f requency/urgency/dysuria. A full 12 point ROS was conducted and unremarkable except as stated above. PMHx: ulcerative colitis (remission since age 11), Gallstones, Hypothyroidism, Anxiety, Iron Deficiency Anemia PSHx: denies Meds: synthroid 100mcg PO daily, ativan 0.5 mg PO daily prn, ferosul 325mg PO QID Allergies: 5-ASA per patient diagnosed as a child (symptoms unknown) SocialHx: Patient works at a [employer]. Lives in [place]. Former smoker (1 PPD x 20 years), quit 1 year ago. Denies EtOH and llicit drug use. FamHx: father and brother has DM PMD: Dr. Horan Review of Systems - Review of Systems Review of Systems: 12 point ROS completed and negative except as described in HPI. Past Patient History - Past Social History Smoking Status: Vap - CARDIAC Hx Cardiac Disorders: No - PULMONARY Hx Respiratory Disorders: No - NEUROLOGICAL Hx Neurological Disorder: No - HEENT Hx HEENT Problems: No - RENAL Hx Chronic Kidney Disease: No - ENDOCRINE/METABOLIC Hx Endocrine Disorders: Yes Hx Hypothyroidism: Yes - HEMATOLOGICAL/ONCOLOGICAL Hx Anemia: Yes (iron deficiency anemia) - INTEGUMENTARY Hx Dermatological Problems: No - MUSCULOSKELETAL/RHEUMATOLOGICAL Hx Musculoskeletal Disorders: No Hx Falls: No - GASTROINTESTINAL Hx Gastrointestinal Disorders: Yes Other/Comment: Liver problem due to previous alcohol use (reports quit 1 year ago). Gallstone. Ulcerative colitis - GENITOURINARY/GYNECOLOGICAL Hx Genitourinary Disorders: No - PSYCHIATRIC Hx Anxiety: Yes Hx Substance Use: No - SURGICAL HISTORY Hx Surgeries: No Meds Allergies/Adverse Reactions: Allergies Allergy/AdvReac Type Severity Reaction Status Date / Time No Known Allergies Allergy Verified 02/01/19 17:49 - Medications Medications: Current Medications Ferrous Sulfate (Feosol) 324 mg PO QID [facility] Last Admin: 02/03/19 14:36 Dose: 324 mg Metronidazole (Flagyl) 500 mg in 100 mls @ 100 mls/hr IVPB Q8 [facility]; Protocol Last Admin: 02/03/19 14:36 Dose: 100 mls/hr Ceftriaxone Sodium (Rocephin 1 Gram Ivpb) 1 gm in 100 mls @ 100 mls/hr IVPB DAILY [facility]; Protocol Last Admin: 02/03/19 10:36 Dose: 100 mls/hr Sodium Chloride (Sodium Chloride 0.9%) 1,000 mls @ 125 mls/hr IV .Q8H [facility] Last Admin: 02/02/19 17:29 Dose: 125 mls/hr Ibuprofen (Motrin Tab) 400 mg PO Q6H PRN PRN Reason: Pain, moderate (4-7) Last Admin: 02/03/19 09:53 Dose: 400 mg Levothyroxine Sodium (Synthroid) 100 mcg PO 0600 [facility] Last Admin: 02/03/19 06:44 Dose: 100 mcg Lorazepam (Ativan) 0.5 mg PO DAILY PRN; Protocol PRN Reason: Anxiety Last Admin: 02/02/19 11:21 Dose: 0.5 mg Nicotine (Nicoderm Cq) 1 patch TD DAILY [facility] Last Admin: 02/03/19 10:36 Dose: 1 patch Ondansetron HCl (Zofran Inj) 4 mg IVP Q4H PRN PRN Reason: Nausea/Vomiting Last Admin: 02/02/19 04:25 Dose: 4 mg Pantoprazole Sodium (Protonix Ec Tab) 40 mg PO 0600 [facility] Last Admin: 02/03/19 06:44 Dose: 40 mg Physical Exam - Constitutional Appears: Well, Non-toxic, No Acute Distress - Head Exam Head Exam: ATRAUMATIC, NORMAL INSPECTION, NORMOCEPHALIC - Eye Exam Eye Exam: EOMI, Normal appearance. absent: Scleral icterus Pupil Exam: PERRL - ENT Exam ENT Exam: Mucous Membranes Moist, Normal Exam - Neck Exam Neck exam: Positive for: Normal Inspection. Negative for: Tenderness, Th yromegaly - Respiratory Exam Respiratory Exam: Clear to Auscultation Bilateral, NORMAL BREATHING PATTERN. absent: Chest Wall Tenderness, Decreased Breath Sounds, Prolonged Expiratory Phase, Rales, Rhonchi, Wheezes - Cardiovascular Exam Cardiovascular Exam: RRR, +S1, +S2 - GI/Abdominal Exam GI & Abdominal Exam: Soft. absent: Distended, Firm, Guarding, Rebound, Tenderness (Negative Valles's) - Extremities Exam Extremities exam: Positive for: normal inspection. Negative for: pedal edema, tenderness - Back Exam Back exam: absent: CVA tenderness (L), CVA tenderness (R) - Neurological Exam Neurological exam: Alert, Oriented x3 - Psychiatric Exam Psychiatric exam: Normal Affect, Normal Mood - Skin Skin Exam: Dry, Intact, Normal Color, Warm Results - Vital Signs Recent Vital Signs: Last Vital Signs Temp 98.5 F 02/03/19 06:00 Pulse 58 L 02/03/19 06:00 Resp 18 02/03/19 06:00 BP 111/69 02/03/19 06:00 Pulse Ox 98 02/03/19 06:00 - Labs Result Diagrams: 02/03/19 07:00 02/03/19 07:00 Labs: Laboratory Results - last 24 hr 02/02/19 02/03/19 02/03/19 11:00 07:00 07:00 WBC 9.5 D RBC 3.79 Hgb 11.4 L Hct 33.9 L MCV 89.4 MCH 30.1 MCHC 33.6 RDW 13.7 Plt Count 172 MPV 11.7 H Sodium 139 Potassium 3.8 Chloride 106 Carbon Dioxide 25 Anion Gap 11 BUN 5 L Creatinine 0.6 L Est GFR ( Amer) > 60 Est GFR (Non-Af Amer) > 60 Random Glucose 85 Calcium 9.4 Phosphorus 2.9 Magnesium 1.8 Total Bilirubin 2.5 H AST 122 H ALT 90 H Alkaline Phosphatase 135 H Total Protein 7.1 Albumin 4.0 Globulin 3.1 Albumin/Globulin Ratio 1.3 Stool Leukocytes, Qual Negative Assessment & Plan - Assessment and Plan (Free Text) Assessment: Ms. Soto is a 33 year old female with a PMHx of ulcerative colitis (remission since age 11), Gallstones, Hypothyroidism, Anxiety, Iron Deficiency Anemia. Surgery was consulted for asymptomatic Cholelithiasis on CT, confirmed by ultrasound. Loose stools x3 but no fevers, chills, leukocytosis or RUQ pain. - CT and RUQ ultrasound showed 2 large gallstones in the neck of the gallbladder. There is no mural thickening or pericholecystic fluid. MRCP shows no stones in common bile duct and normal caliber. - Transaminitis with AST/ALT/ALk Phos 122/90/135. Tbili 2.5 - Will consider need for surgical necessity while inpatient vs. follow up as outpatient Further recs per Dr. Fall. Raghavendra Keenan, PGY-1 <Hoa Elizabeth - Last Filed: 02/03/19 16:44> Meds - Medications Medications: Current Medications Ferrous Sulfate (Feosol) 324 mg PO QID [facility] Last Admin: 02/03/19 14:36 Dose: 324 mg Metronidazole (Flagyl) 500 mg in 100 mls @ 100 mls/hr IVPB Q8 [facility]; Protocol Last Admin: 02/03/19 14:36 Dose: 100 mls/hr Ceftriaxone Sodium (Rocephin 1 Gram Ivpb) 1 gm in 100 mls @ 100 mls/hr IVPB DAILY [facility]; Protocol Last Admin: 02/03/19 10:36 Dose: 100 mls/hr Sodium Chloride (Sodium Chloride 0.9%) 1,000 mls @ 125 mls/hr IV .Q8H [facility] Last Admin: 02/02/19 17:29 Dose: 125 mls/hr Ibuprofen (Motrin Tab) 400 mg PO Q6H PRN PRN Reason: Pain, moderate (4-7) Last Admin: 02/03/19 09:53 Dose: 400 mg Levothyroxine Sodium (Synthroid) 100 mcg PO 0600 [facility] Last Admin: 02/03/19 06:44 Dose: 100 mcg Lorazepam (Ativan) 0.5 mg PO DAILY PRN; Protocol PRN Reason: Anxiety Last Admin: 02/02/19 11:21 Dose: 0.5 mg Nicotine (Nicoderm Cq) 1 patch TD DAILY [facility] Last Admin: 02/03/19 10:36 Dose: 1 patch Ondansetron HCl (Zofran Inj) 4 mg IVP Q4H PRN PRN Reason: Nausea/Vomiting Last Admin: 02/02/19 04:25 Dose: 4 mg Pantoprazole Sodium (Protonix Ec Tab) 40 mg PO 0600 [facility] Last Admin: 02/03/19 06:44 Dose: 40 mg Results - Vital Signs Recent Vital Signs: Last Vital Signs Temp 98.5 F 02/03/19 06:00 Pulse 58 L 02/03/19 06:00 Resp 18 02/03/19 06:00 BP 111/69 02/03/19 06:00 Pulse Ox 98 02/03/19 06:00 - Labs Result Diagrams: 02/03/19 07:00 02/03/19 07:00 Labs: Laboratory Results - last 24 hr 02/02/19 02/03/19 02/03/19 11:00 07:00 07:00 WBC 9.5 D RBC 3.79 Hgb 11.4 L Hct 33.9 L MCV 89.4 MCH 30.1 MCHC 33.6 RDW 13.7 Plt Count 172 MPV 11.7 H Sodium 139 Potassium 3.8 Chloride 106 Carbon Dioxide 25 Anion Gap 11 BUN 5 L Creatinine 0.6 L Est GFR ( Amer) > 60 Est GFR (Non-Af Amer) > 60 Random Glucose 85 Calcium 9.4 Phosphorus 2.9 Magnesium 1.8 Total Bilirubin 2.5 H AST 122 H ALT 90 H Alkaline Phosphatase 135 H Total Protein 7.1 Albumin 4.0 Globulin 3.1 Albumin/Globulin Ratio 1.3 Stool Leukocytes, Qual Negative Assessment & Plan - Assessment and Plan (Free Text) Plan: - CT and RUQ ultrasound showed 2 large gallstones in the neck of the gallbladder. There is no mural thickening or pericholecystic fluid. MRCP shows no stones in common bile duct and normal caliber. - Transaminitis with AST/ALT/ALk Phos 122/90/135. Tbili 2.5 - Will consider need for surgical necessity while inpatient vs. follow up as outpatient Further recs per Dr. Fall. Raghavendra Keenan, PGY-1 -after discussion with Dr. fall patient may follow up outpatient to schedule elective cholecystectomy - patient should be placed on levoquin and flagyl x 5 days hoa elizabeth, PGY 1 - Date & Time Date: 02/03/19 Time: 15:45
--- NOTE | 2019-02-03 17:52 | CP.PCM.PN ---
<Nnamdi Batista - Last Filed: 02/03/19 17:48> Subjective - Date & Time of Evaluation Date of Evaluation: 02/03/19 Time of Evaluation: 17:48 - Subjective Subjective: Patient is doing well. No complaints. Denies abdominal pain. Tolerating diet. She reports she has had history of UC diagnosed in [place] at age 8. She has had several episodes of alcoholic hepatitis recently and has been found to have sustained LFT elevation. She is seeing a GI doctor in [place] where she is being followed. Objective - Vital Signs/Intake and Output Vital Signs (last 24 hours): Temp Pulse Resp BP Pulse Ox 98.5 F 58 L 18 111/69 98 02/03/19 06:00 02/03/19 06:00 02/03/19 06:00 02/03/19 06:00 02/03/19 06:00 Intake and Output: 02/03/19 02/03/19 06:59 18:59 Intake Total 1160 Output Total 50 Balance 1160 -50 - Medications Medications: Current Medications Ferrous Sulfate (Feosol) 324 mg PO QID [facility] Last Admin: 02/03/19 14:36 Dose: 324 mg Metronidazole (Flagyl) 500 mg in 100 mls @ 100 mls/hr IVPB Q8 [facility]; Protocol Last Admin: 02/03/19 14:36 Dose: 100 mls/hr Ceftriaxone Sodium (Rocephin 1 Gram Ivpb) 1 gm in 100 mls @ 100 mls/hr IVPB DAILY [facility]; Protocol Last Admin: 02/03/19 10:36 Dose: 100 mls/hr Sodium Chloride (Sodium Chloride 0.9%) 1,000 mls @ 125 mls/hr IV .Q8H [facility] Last Admin: 02/02/19 17:29 Dose: 125 mls/hr Ibuprofen (Motrin Tab) 400 mg PO Q6H PRN PRN Reason: Pain, moderate (4-7) Last Admin: 02/03/19 09:53 Dose: 400 mg Levothyroxine Sodium (Synthroid) 100 mcg PO 0600 [facility] Last Admin: 02/03/19 06:44 Dose: 100 mcg Lorazepam (Ativan) 0.5 mg PO DAILY PRN; Protocol PRN Reason: Anxiety Last Admin: 02/02/19 11:21 Dose: 0.5 mg Nicotine (Nicoderm Cq) 1 patch TD DAILY [facility] Last Admin: 02/03/19 10:36 Dose: 1 patch Ondansetron HCl (Zofran Inj) 4 mg IVP Q4H PRN PRN Reason: Nausea/Vomiting Last Admin: 02/02/19 04:25 Dose: 4 mg Pantoprazole Sodium (Protonix Ec Tab) 40 mg PO 0600 [facility] Last Admin: 02/03/19 06:44 Dose: 40 mg - Labs Labs: 02/03/19 07:00 02/03/19 07:00 - Constitutional Appears: Non-toxic, No Acute Distress - Head Exam Head Exam: ATRAUMATIC, NORMAL INSPECTION - Respiratory Exam Respiratory Exam: Clear to Ausculation Bilateral, NORMAL BREATHING PATTERN - Cardiovascular Exam Cardiovascular Exam: REGULAR RHYTHM, +S1, +S2 - GI/Abdominal Exam GI & Abdominal Exam: Soft, Normal Bowel Sounds. absent: Tenderness - Neurological Exam Neurological Exam: Alert, Awake, Oriented x3 - Skin Skin Exam: Normal Color, Warm Assessment and Plan - Assessment and Plan (Free Text) Assessment: #Elevated LFTs #Asymptomatic Gallstones #Hx of UC #Alcohol abuse Plan: -Clinically asymptomatic at this time. -MRCP/MRI reviewed. No acute pathology. No obvious PSC. + gallstones. -Recommend outpatient follow up at her primary GI clinic. -Recommend Colonoscopy, liver biopsy and monitoring of LFTs as an outpatient. Case discussed with Dr. Hardy, see attestation. <Zulay Hardy V - Last Filed: 02/03/19 23:29> Objective - Vital Signs/Intake and Output Vital Signs (last 24 hours): Temp Pulse Resp BP Pulse Ox 98.5 F 58 L 18 111/69 98 02/03/19 06:00 02/03/19 06:00 02/03/19 06:00 02/03/19 06:00 02/03/19 06:00 Intake and Output: 02/03/19 02/04/19 18:59 06:59 Output Total 50 Balance -50 - Labs Labs: 02/03/19 07:00 02/03/19 07:00 Attending/Attestation - Attestation I have personally seen and examined this patient.: Yes I have fully participated in the care of the patient.: Yes I have reviewed all pertinent clinical information, including history, physical exam and plan: Yes Notes (Text): This is an addendum to GI progress report dictated by the GI Fellow. The patient was seen and examined earlier. Medical records, lab studies, imagings were reviewed. Last 24 hours events reviewed. Agreed with the above treatment plan as outlined in GI Fellow 's notes with the addition of the following 02/03/19 23:29
--- NOTE | 2019-02-03 17:55 | CP.PCM.DIS ---
<Dougie Lind - Last Filed: 02/03/19 18:07> Provider - Provider Date of Admission: 02/01/19 23:42 Attending physician: Flavia Gaytan MD Primary care physician: Diony Horan MD Consults: 02/02/19 00:53 Physician Consult Routine Comment: Consulting Provider: Zulay Hardy V Consulting Physician: Zulay Hardy V Reason for Consult: Hx UC; transaminitis with cholelithiasis 02/03/19 15:21 Physician Consult Routine Comment: Consulting Provider: Jamaal Solis Consulting Physician: Jamaal Solis Reason for Consult: Cholelithiasis Time Spent in preparation of Discharge (in minutes): 45 Diagnosis - Discharge Diagnosis (1) Pancolitis Status: Resolved (2) Nausea & vomiting Status: Resolved (3) Gallstones Status: Chronic (4) Elevated LFTs Status: Chronic Hospital Course - Lab Results Lab Results: Micro Results 02/02/19 11:00 Stool C. difficile Antigen & Toxins A,B - Final 02/01/19 19:00 Urine,Clean Catch Urine Culture - Final No Growth (<1,000 CFU/ML) 02/01/19 23:25 Blood Blood Culture - Preliminary NO GROWTH AFTER 24 HOURS 02/01/19 23:05 Blood Blood Culture - Preliminary NO GROWTH AFTER 24 HOURS Most Recent Lab Values WBC 9.5 10^3/uL (4.5-11.0) D 02/03/19 07:00 RBC 3.79 10^6/uL (3.5-6.1) 02/03/19 07:00 Hgb 11.4 g/dL (12.0-16.0) L 02/03/19 07:00 Hct 33.9 % (36.0-48.0) L 02/03/19 07:00 MCV 89.4 fl (80.0-105.0) 02/03/19 07:00 MCH 30.1 pg (25.0-35.0) 02/03/19 07:00 MCHC 33.6 g/dl (31.0-37.0) 02/03/19 07:00 RDW 13.7 % (11.5-14.5) 02/03/19 07:00 Plt Count 172 10^3/uL (120.0-450.0) 02/03/19 07:00 MPV 11.7 fl (7.0-11.0) H 02/03/19 07:00 Neut % (Auto) 72.2 % (50.0-68.0) H 02/01/19 18:14 Lymph % (Auto) 19.1 % (22.0-35.0) L 02/01/19 18:14 Erie % (Auto) 7.3 % (1.0-6.0) H 02/01/19 18:14 Eos % (Auto) 1.2 % (1.5-5.0) L 02/01/19 18:14 Baso % (Auto) 0.2 % (0.0-3.0) 02/01/19 18:14 Lymph # (Auto) 2.4 (1.2-3.4) 02/01/19 18:14 Erie # (Auto) 0.9 (0.1-0.6) H 02/01/19 18:14 Eos # (Auto) 0.2 (0.0-0.7) 02/01/19 18:14 Baso # (Auto) 0.03 K/mm3 (0.0-2.0) 02/01/19 18:14 Absolute Neuts (auto) 8.95 (1.4-6.5) H 02/01/19 18:14 Sodium 139 mmol/L (132-148) 02/03/19 07:00 Potassium 3.8 mmol/L (3.6-5.0) 02/03/19 07:00 Chloride 106 mmol/L (98-107) 02/03/19 07:00 Carbon Dioxide 25 mmol/L (21-33) 02/03/19 07:00 Anion Gap 11 (10-20) 02/03/19 07:00 BUN 5 mg/dL (7-21) L 02/03/19 07:00 Creatinine 0.6 mg/dl (0.7-1.2) L 02/03/19 07:00 Est GFR ( Amer) > 60 02/03/19 07:00 Est GFR (Non-Af Amer) > 60 02/03/19 07:00 Random Glucose 85 mg/dL (70-110) 02/03/19 07:00 Calcium 9.4 mg/dL (8.4-10.5) 02/03/19 07:00 Phosphorus 2.9 mg/dL (2.5-4.5) 02/03/19 07:00 Magnesium 1.8 mg/dL (1.7-2.2) 02/03/19 07:00 Total Bilirubin 2.5 mg/dL (0.2-1.3) H 02/03/19 07:00 AST 122 U/L (14-36) H 02/03/19 07:00 ALT 90 U/L (7-56) H 02/03/19 07:00 Alkaline Phosphatase 135 U/L (38-126) H 02/03/19 07:00 Total Protein 7.1 g/dL (5.8-8.3) 02/03/19 07:00 Albumin 4.0 g/dL (3.0-4.8) 02/03/19 07:00 Globulin 3.1 gm/dL 02/03/19 07:00 Albumin/Globulin Ratio 1.3 (1.1-1.8) 02/03/19 07:00 Lipase 30 U/L (23-300) 02/01/19 18:14 Urine Color Dark yellow (YELLOW) 02/01/19 18:14 Urine Appearance Slight-cloudy (CLEAR) 02/01/19 18:14 Urine pH 6.5 (4.7-8.0) 02/01/19 18:14 Ur Specific Emmons 1.025 (1.005-1.035) 02/01/19 18:14 Urine Protein 30 mg/dL (<30 mg/dL) H 02/01/19 18:14 Urine Glucose (UA) Negative mg/dL (NEGATIVE) 02/01/19 18:14 Urine Ketones Negative mg/dL (NEGATIVE) 02/01/19 18:14 Urine Blood Negative (NEGATIVE) 02/01/19 18:14 Urine Nitrate Positive (NEGATIVE) H 02/01/19 18:14 Urine Bilirubin Small (NEGATIVE) H 02/01/19 18:14 Urine Urobilinogen 0.2 E.U./dL (<1 E.U./dL) 02/01/19 18:14 Ur Leukocyte Esterase Negative Hussein/uL (NEGATIVE) 02/01/19 18:14 Urine RBC None /hpf (0-2) 02/01/19 18:14 Urine WBC None /hpf (0-6) 02/01/19 18:14 Ur Epithelial Cells 0 - 2 /hpf (0-5) 02/01/19 18:14 Urine Bacteria Few /hpf (NONE) 02/01/19 18:14 Stool Leukocytes, Qual Negative (NEGATIVE) 02/02/19 11:00 Hepatitis A IgM Ab Negative (NEGATIVE) 02/02/19 06:50 Hep Bs Antigen Negative (NEGATIVE) 02/02/19 06:50 Hep B Core IgM Ab Negative (NEGATIVE) 02/02/19 06:50 Hepatitis C Antibody Negative (NEGATIVE) 02/02/19 06:50 - Hospital Course Hospital Course: Patient is a 33 year old female with a PMHx of ulcerative colitis (remission since teenager), Gallstones, Hypothyroidism, Anxiety, Iron Deficiency Anemia who presents to the emergency department complaining of cramping lower abdominal pain with episodes of nausea, vomiting, and diarrhea x1 week in duration. She also has associated difficulty with eating and drinking in the past few days because of her nausea and vomiting. Patient follows up with her GI physician for her UC, last appointment was in August 2018. In the course of her hospital stay, CT abdomen/pelvis showed two large calcified gallstones noted measuring up to 2 cm. Consider follow-up with right upper quadrant ultrasound. Enterocolitis. Simple 2.5 cm left ovarian cyst is seen. The uterus and ovaries are otherwise unremarkable. Gall bladder ultrasound showed 2 large gallstones without mural thickening or pericholecystic fluid. MRCP showed 2 large gallstones, no common duct stones, the common bile duct is normal. Patient was treated with rocephin, flagyl, protonix, iv fluids, and zofran. Patient was initially NPO but diet was advanced as tolerated and she was able to eat regular diet without nausea or vomiting. GI, Dr. Hardy was consulted and evaluated the patient. Surgery, Dr. Solis was consulted and instructed patient to follow up in his office for an elective cholecystectomy. Upon discharge, she was instructed to continue taking flagyl and levaquin for 5 days. She was instructed to follow up with her pmd, admitting supervisor, and surgery. Patient instructed to return to the ED for worsening or newly concerning symptoms. Patient is medically stable for discharge. Discharge Exam - Additional Findings Additional findings: Constitutional Appears: No Acute Distress - Head Exam Head Exam: ATRAUMATIC, NORMAL INSPECTION, NORMOCEPHALIC - Eye Exam Eye Exam: EOMI, Normal appearance Pupil Exam: NORMAL ACCOMODATION, PERRL - ENT Exam ENT Exam: Mucous Membranes Moist - Respiratory Exam Respiratory Exam: Clear to Auscultation Bilateral, NORMAL BREATHING PATTERN. absent: Accessory Muscle Use, Chest Wall Tenderness, Prolonged Expiratory Phase, Rales, Rhonchi, Wheezes - Cardiovascular Exam Cardiovascular Exam: RRR, +S1, +S2 - GI/Abdominal Exam GI & Abdominal Exam: Normal Bowel Sounds, Soft, non-Tender. absent: Firm, Guarding, Hernia, Organomegaly, Pulsatile Mass, Rebound Additional comments: No suprapubic tenderness. - Extremities Exam Extremities exam: Positive for: full ROM, normal inspection, pedal pulses present. Negative for: calf tenderness - Back Exam Back exam: NORMAL INSPECTION. absent: CVA tenderness (L), CVA tenderness (R) - Neurological Exam Neurological exam: Alert, CN II-XII Intact, Oriented x3 - Psychiatric Exam Psychiatric exam: Normal Affect, Normal Mood - Skin Skin Exam: Dry, Intact, Normal Color, Warm Discharge Plan - Discharge Medications Prescriptions: Levofloxacin [Levaquin] 500 mg PO DAILY #5 tablet metroNIDAZOLE [Flagyl] 500 mg PO TID #15 tab - Follow Up Plan Condition: FAIR Disposition: HOME/ ROUTINE Instructions: Ulcerative Colitis in Adults, Gallstones (DC), Liver Function Test Additional Instructions: 1. Continue taking antibiotics, Levaquin 500mg once daily and Flagyl 500mg 3 times daily for 5 more days. Do not drink alcohol when you are on these medications. 2. Resume all home medications as prescribed by your doctor. 3. Follow up with your primary care doctor in 3-4 days. 4. Follow up with your admitting supervisor in 1 week for outpatient colonoscopy, liver biopsy and monitoring of Liver function tests. 5. Follow up with Surgery, Dr. Solis to schedule an elective cholecystectomy. 6. Return to the emergency room for worsening or newly concerning symptoms. Referrals: Diony Horan MD [Primary Care Provider] - Jamaal Solis MD [Staff Provider] - <Flavia Gaytan - Last Filed: 02/04/19 11:34> Provider - Provider Date of Admission: 02/01/19 23:42 Attending physician: Flavia Gaytan MD Primary care physician: Diony Horan MD Consults: 02/02/19 00:53 Physician Consult Routine Comment: Consulting Provider: Zulay Hardy V Consulting Physician: Zulay Hardy V Reason for Consult: Hx UC; transaminitis with cholelithiasis 02/03/19 15:21 Physician Consult Routine Comment: Consulting Provider: Jamaal Solis Consulting Physician: Jamaal Solis Reason for Consult: Cholelithiasis Hospital Course - Lab Results Lab Results: Micro Results 02/01/19 23:25 Blood Blood Culture - Preliminary NO GROWTH AFTER 48 HOURS 02/01/19 23:05 Blood Blood Culture - Preliminary NO GROWTH AFTER 48 HOURS 02/02/19 11:00 Stool Ova and Parasite Concentrate Exam - Final 02/02/19 11:00 Stool C. difficile Antigen & Toxins A,B - Final 02/01/19 19:00 Urine,Clean Catch Urine Culture - Final No Growth (<1,000 CFU/ML) Most Recent Lab Values WBC 9.5 10^3/uL (4.5-11.0) D 02/03/19 07:00 RBC 3.79 10^6/uL (3.5-6.1) 02/03/19 07:00 Hgb 11.4 g/dL (12.0-16.0) L 02/03/19 07:00 Hct 33.9 % (36.0-48.0) L 02/03/19 07:00 MCV 89.4 fl (80.0-105.0) 02/03/19 07:00 MCH 30.1 pg (25.0-35.0) 02/03/19 07:00 MCHC 33.6 g/dl (31.0-37.0) 02/03/19 07:00 RDW 13.7 % (11.5-14.5) 02/03/19 07:00 Plt Count 172 10^3/uL (120.0-450.0) 02/03/19 07:00 MPV 11.7 fl (7.0-11.0) H 02/03/19 07:00 Neut % (Auto) 72.2 % (50.0-68.0) H 02/01/19 18:14 Lymph % (Auto) 19.1 % (22.0-35.0) L 02/01/19 18:14 Erie % (Auto) 7.3 % (1.0-6.0) H 02/01/19 18:14 Eos % (Auto) 1.2 % (1.5-5.0) L 02/01/19 18:14 Baso % (Auto) 0.2 % (0.0-3.0) 02/01/19 18:14 Lymph # (Auto) 2.4 (1.2-3.4) 02/01/19 18:14 Erie # (Auto) 0.9 (0.1-0.6) H 02/01/19 18:14 Eos # (Auto) 0.2 (0.0-0.7) 02/01/19 18:14 Baso # (Auto) 0.03 K/mm3 (0.0-2.0) 02/01/19 18:14 Absolute Neuts (auto) 8.95 (1.4-6.5) H 02/01/19 18:14 Sodium 139 mmol/L (132-148) 02/03/19 07:00 Potassium 3.8 mmol/L (3.6-5.0) 02/03/19 07:00 Chloride 106 mmol/L (98-107) 02/03/19 07:00 Carbon Dioxide 25 mmol/L (21-33) 02/03/19 07:00 Anion Gap 11 (10-20) 02/03/19 07:00 BUN 5 mg/dL (7-21) L 02/03/19 07:00 Creatinine 0.6 mg/dl (0.7-1.2) L 02/03/19 07:00 Est GFR ( Amer) > 60 02/03/19 07:00 Est GFR (Non-Af Amer) > 60 02/03/19 07:00 Random Glucose 85 mg/dL (70-110) 02/03/19 07:00 Calcium 9.4 mg/dL (8.4-10.5) 02/03/19 07:00 Phosphorus 2.9 mg/dL (2.5-4.5) 02/03/19 07:00 Magnesium 1.8 mg/dL (1.7-2.2) 02/03/19 07:00 Total Bilirubin 2.5 mg/dL (0.2-1.3) H 02/03/19 07:00 AST 122 U/L (14-36) H 02/03/19 07:00 ALT 90 U/L (7-56) H 02/03/19 07:00 Alkaline Phosphatase 135 U/L (38-126) H 02/03/19 07:00 Total Protein 7.1 g/dL (5.8-8.3) 02/03/19 07:00 Albumin 4.0 g/dL (3.0-4.8) 02/03/19 07:00 Globulin 3.1 gm/dL 02/03/19 07:00 Albumin/Globulin Ratio 1.3 (1.1-1.8) 02/03/19 07:00 Lipase 30 U/L (23-300) 02/01/19 18:14 Urine Color Dark yellow (YELLOW) 02/01/19 18:14 Urine Appearance Slight-cloudy (CLEAR) 02/01/19 18:14 Urine pH 6.5 (4.7-8.0) 02/01/19 18:14 Ur Specific Emmons 1.025 (1.005-1.035) 02/01/19 18:14 Urine Protein 30 mg/dL (<30 mg/dL) H 02/01/19 18:14 Urine Glucose (UA) Negative mg/dL (NEGATIVE) 02/01/19 18:14 Urine Ketones Negative mg/dL (NEGATIVE) 02/01/19 18:14 Urine Blood Negative (NEGATIVE) 02/01/19 18:14 Urine Nitrate Positive (NEGATIVE) H 02/01/19 18:14 Urine Bilirubin Small (NEGATIVE) H 02/01/19 18:14 Urine Urobilinogen 0.2 E.U./dL (<1 E.U./dL) 02/01/19 18:14 Ur Leukocyte Esterase Negative Hussein/uL (NEGATIVE) 02/01/19 18:14 Urine RBC None /hpf (0-2) 02/01/19 18:14 Urine WBC None /hpf (0-6) 02/01/19 18:14 Ur Epithelial Cells 0 - 2 /hpf (0-5) 02/01/19 18:14 Urine Bacteria Few /hpf (NONE) 02/01/19 18:14 Stool Leukocytes, Qual Negative (NEGATIVE) 02/02/19 11:00 Hepatitis A IgM Ab Negative (NEGATIVE) 02/02/19 06:50 Hep Bs Antigen Negative (NEGATIVE) 02/02/19 06:50 Hep B Core IgM Ab Negative (NEGATIVE) 02/02/19 06:50 Hepatitis C Antibody Negative (NEGATIVE) 02/02/19 06:50 Attending/Attestation - Attestation I have personally seen and examined this patient.: Yes I have fully participated in the care of the patient.: Yes I have reviewed all pertinent clinical information, including history, physical exam and plan: Yes Notes (Text): 02/04/19 11:27 Medical record note made by the resident after discussion with my direction and input after the patient was personally seen and examined by me. I have reviewed the chart and agree that the record accurately reflects by personal performance of the history, physical exam, data review, and medical decision-making, in the course for the patient. I have also personally directed the plan of care. 33 year old female with a PMHx of Obesity, ulcerative colitis ?(remission since teenager), Gallstones, Hypothyroidism, Anxiety, was admitted with cramping lower abdominal pain with episodes of nausea, vomiting, and diarrhea x1 week in duration. CT abdomen/pelvis showed two large calcified gallstones noted measuring up to 2 cm. Consider follow-up with right upper quadrant ultrasound. Enterocolitis. Simple 2.5 cm left ovarian cyst is seen. The uterus and ovaries are otherwise unremarkable. Gall bladder ultrasound showed 2 large gallstones without mural thickening or pericholecystic fluid. MRCP showed 2 large gallstones, no common duct stones, the common bile duct is normal. Patient was treated with IV antibiotics, protonix, iv fluids, and zofran. Patient was initially NPO but diet was advanced as tolerated and she was able to eat regular diet without nausea or vomiting. Patient was seen in consultation with GI, Dr. Hardy and surgery Surgery, Dr. Solis . Patient has been advised to follow up in his office for an elective cholecystectomy. Patient will be discharged home on oral antibiotics and will follow up with PCP/GI and surgery. Management plan was discussed in detail with patient. Education was provided.
== END 2019-02-03 19:33 | disposition home or self-care (01) | DRG 179 ==
LOC: ED 17:27 → ERH 23:42 → 5RSO 02-02 03:50
PROVIDERS: ADMIT Internal Medicine; ATTEND Internal Medicine
DX: K51.90 Ulcerative colitis, unspecified, without complications (principal); K80.20 Calculus of gallbladder without cholecystitis without obstruction; D50.9 Iron deficiency anemia, unspecified; E03.9 Hypothyroidism, unspecified; F41.9 Anxiety disorder, unspecified; N83.202 Unspecified ovarian cyst, left side; K70.10 Alcoholic hepatitis without ascites; Z72.89 Other problems related to lifestyle; Z87.891 Personal history of nicotine dependence